=== PATIENT | female | born 1930 | race Caucasian/White ===

== ENCOUNTER → 2016-09-09 | Outpatient (CLI) | payer MEDICARE, BC ==
[~2016-09-09] MED LIST: ALDACTONE25 MG PO; ASPIRIN LO-DOSE81 MG PO; CATAPRES0.1 M1 PO; CENTRUM SILVER1 EAC1 PO; COREG25 MG PO; EFFEXOR XR75 MG PO; FLORAJEN3 CAPS460 MG PO; LEVOTHROID (S100 MCG PO; NAMENDA; NORVASC5 MG PO; PEPCID20 MG PO; PRAVACHOL20 MG PO
[2016-09-09 15:07] LABS: BILIRUBIN URINE NEGATIVE (NEGATIVE); BLOOD URINE 150 /UL (NEGATIVE); GLUCOSE URINE NEGATIVE (NEGATIVE); KETONE URINE NEGATIVE (NEGATIVE); LEUKOCYTES URINE 25 /UL (NEGATIVE); NITRITE URINE NEGATIVE (NEGATIVE); PROTEIN URINE NEGATIVE (NEGATIVE); SPEC GRAVITY URINE 1.015 (1.003-1.035); UROBILINOGEN URINE NORMAL (NORMAL)
[2016-09-09 15:08] LABS: COLOR URINE YELLOW (YELLOW); TURBIDITY URINE 2+ (CLEAR)
[2016-09-09 15:22] LABS: BACTERIA URINE MANY (NEGATIVE)
[2016-09-09 15:27] LABS: RBC URINE 20-50 #/HPF (NEGATIVE)
== END | disposition disaster alternative care site (69) ==
PROVIDERS: Internal Medicine
DX: Z87.440 Personal history of urinary (tract) infections (principal)

== ENCOUNTER → 2016-10-20 | Outpatient (CLI) | payer MEDICARE, BC ==
[2016-10-20 11:26] LABS: BASOPHIL # 0.1 K/uL (0.0-0.2); BASOPHIL % 0.9 %; EOSINOPHIL # 0.4 K/uL (0.0-0.5); EOSINOPHIL % 4.7 %; HEMATOCRIT 35.8 % (30.0-46.0); HEMOGLOBIN 11.6 g/dL (10.0-15.0); IMMATURE GRANULOCYTE % 0.5 %; LYMPHOCYTE # 2.1 K/uL (0.8-4.0); LYMPHOCYTE % 23.9 %; MCH 30.1 pg (27.0-34.0); MCHC 32.4 gm/dL (32.0-36.5); MCV 92.7 fl (83.0-98.0); MONOCYTE # 0.5 K/uL (0.0-1.0); MONOCYTE % 5.7 %; MPV 8.9 fl (9.4-12.4); NEUTROPHIL # (ANC) 5.6 K/uL (1.8-7.8); NEUTROPHIL % 64.3 %; NRBC % 0 /100WBC (0-0.00); PLATELET COUNT 276 K/uL (150-450); RBC 3.86 M/uL (3.00-5.00); RDW-CV 14.6 % (11.9-14.6); WBC 8.7 K/uL (4.0-11.0)
[2016-10-20 11:48] LABS: ALBUMIN 3.1 gm/dL (3.5-5.0); CALCIUM 8.8 mg/dL (8.5-10.5); CREATININE 2.1 mg/dL (0.5-1.1); TOTAL BILIRUBIN 0.4 mg/dL (0.0-1.5); TOTAL PROTEIN 7.5 g/dL (6.0-8.4)
== END ==
PROVIDERS: Internal Medicine
DX: E03.9 Hypothyroidism, unspecified (principal); Z87.440 Personal history of urinary (tract) infections; I10 Essential (primary) hypertension

== ENCOUNTER → 2016-12-02 | Outpatient (CLI) | payer MEDICARE, BC | END | disposition disaster alternative care site (69) | LOC: GAMB 11:17 | DX: R07.1 Chest pain on breathing (principal); R41.0 Disorientation, unspecified; Z86.79 Personal history of other diseases of the circulatory system; Z86.59 Personal history of other mental and behavioral disorders; I48.91 Unspecified atrial fibrillation; R63.3 Feeding difficulties; R11.0 Nausea; Z79.899 Other long term (current) drug therapy | CPT/HCPCS: A0422; A0425; A0427; J2405 ==